=== PATIENT | male | born 1955 | race Caucasian/White ===

== ENCOUNTER 2017-10-01 09:39 | Inpatient (IN) | payer MEDICARE ==
[2017-10-01] VITALS (7 sets, daily range): BP systolic 116–189; BP diastolic 56–106
[~2017-10-01] VITALS: Ht 180.3 cm; Wt 157.9 kg
--- NOTE | ~2017-10-01 | PROC ---
[facility] [address] [place] [address] PROCEDURE REPORT Name: CURTIS DWYER Room: [address] IN M.R.#: [id number] Admission: 10/01/17 Attend Phys: Varun Skelton, Discharge: 10/08/17 Date of : 53 Report #: [id number] THIS REPORT FOR: //name// For GI report, Please see the Provation report in Perceptive 7 content. By: [facility]8Medical Records Staff ILENE /BRENNEN
[~2017-10-01 09:39] MED LIST: ACCUNEB0.63 MG/3 IH; ACETAMINOPHEN325 M1 PO; ALBUTEROL INH; ALBUTEROL SULFAT2 MG PO; ALBUTEROL2.5 MG/32; ALLERGY RELIEF1 EACH PO; ALPRAZOLAM 0.0.25 M1 PO; AMBEREN PO; AMLODIPINE BESY10 MG PO; AUGMENTIN 875875 M1 PO; AVELOX 400 MG400 M1 PO; AZITHROMYCIN 2250 MG PO; BENADRYL ALLE12.5 M1 PO; BENADRYL25 MG; CALCIUM ASCORB500 MG PO; CARTIA XT PO; CEFTIN500 MG PO; CLEOCIN HCL300 MG PO; CLONIDINE HCL0.3 M2 PO; CLONIDINE HCL0.3 M3 PO; COLACE 100 MG100 MG PO; COUMADIN 1MG TAB1 M1 PO; COUMADIN 5 MG TA5 M1 PO; DOXYCYCLINE 10100 MG PO; DUONEB 2.5-0.5 M3 ML INH; FIORICET 50-301 EACH PO; FLOMAX0.4 MG PO; GABAPENTIN100 MG PO; GLUCOPHAGE500 MG PO; GLUCOTROL10 MG PO; GLUCOTROL5 MG PO; HYDROCHLOROTHIA25 M1 PO; IBUPROFEN 600600 M1 PO; IBUPROFEN 800800 M1 GT; IBUPROFEN 800800 M1 PO; K-DUR 20 MEQ T20 MEQ PO; LASIX 20 MG TAB20 MG; LASIX 20 MG TAB20 MG PO; LASIX 40 MG TAB40 M2 PO; LEVAQUIN 500 M500 M2 PO; LISINOPRIL20 MG PO; LISINOPRIL40 MG PO; LOPRESSOR100 MG PO; LOPRESSOR50 PO; METFORMIN HCL500 MG PO; MUCINEX; MUCINEX TA600 MG/TA2 PO; MUCINEX600 MG; MUCINEX600 MG PO; MULTIPLE VITAM1 EAC3 PO; NORCO 5-325 TA1 EACH PO; NORVASC 5 MG TAB5 MG PO; NORVASC10 MG PO; NOVOLOG100 UNIT/1 SQ; OXYBUTYNIN 5 MG5 M2 PO; OXYCODONE HCL 55 MG PO; OXYCODONE HCL5 M1; OXYCODONE HCL5 M1 PO; OXYCONTIN20 M1 PO; OXYCONTIN40 MG; OXYCONTIN40 MG PO; PEPCID40 MG PO; PHENTERMINE H37.5 MG PO; PNEUMOVAX25 MCG/0.5; POTASSIUM20; POTASSIUM20 PO; PRAVACHOL20 MG PO; PREDNISONE 10 M10 MG PO; SERTRALINE HCL100 MG PO; SKELAXIN 800 M800 M1 PO; STOOL SOFTENER; STOOL SOFTENER1 EAC1 PO; STOOL SOFTENER240 MG PO; TAMSULOSIN HCL0.4 MG PO; TOPAMAX50 MG PO; TRIAMTERENE-HC1 EAC1 PO; VITAMIN B-6 PO; VITAMIN B-6200 M1 PO; VITAMIN C; VITAMIN C120 GM PO; VITAMIN D-32000 UNIT PO; VITAMINC500 PO; XANAX 0.25 MG0.25 MG PO; XANAX1 MG PO; ZOLOFT100 MG PO; ZOLOFT50 MG PO; [UNRECOGNIZED DRUG - OTHER]
[2017-10-01] MEDS ORDERED: PRILOSEC 20 MG20 MG PO (09:53)
[2017-10-01] MEDS ORDERED: VITAMINC500 PO (09:54)
[2017-10-01] MEDS ORDERED: ASPIRIN81 M2 PO (09:54)
[2017-10-01] MEDS ORDERED: PRED FORTE 1% EY5 M1 OPHTHALMIC (09:54)
[2017-10-01] MEDS ORDERED: STOOL SOFTENER1 EAC2 PO (09:55)
[2017-10-01] MEDS ORDERED: VITAMIN D1000 UNI1 PO (09:55)
[2017-10-01] MEDS ORDERED: VITAMIN B-12500 MCG PO (09:55)
[2017-10-01] MEDS ORDERED: ZANTAC 150MG T150 MG PO (09:56)
[2017-10-01 10:25] LABS: INFLUENZA A ANTIGEN None Detected (None Detect); INFLUENZA B ANTIGEN None Detected (None Detect)
[2017-10-01 10:26] LABS: HEMATOCRIT 22.4 % (42.0-52.0); MCH 14.9 pg (26.0-34.0); MCHC 26.3 g/dL (28.0-37.0); MCV 56.8 fL (80.0-100.0); MPV 8.6 fl. (7.2-11.1); NUCLEATED RBCS 0 /100WBC; PLATELET COUNT* 274 thou/uL (150-400); RBC 3.94 mil/uL (4.50-6.00); RDW-CV 21.4 % (10.5-14.5); WBC 13.8 thou/uL (4.0-11.0)
[2017-10-01 10:29] LABS: HEMOGLOBIN 5.9 gm/dL (14.0-18.0)
[2017-10-01 10:30] LABS: ANION GAP 3 mmol/L (7-16); BUN 15 mg/dL (7-18); CALCIUM 7.9 mg/dL (8.5-10.1); CHLORIDE 104 mmol/L (98-107); CO2 32 mmol/L (21-32); CREATININE 0.8 mg/dL (0.6-1.3); GLUCOSE 207 mg/dL (70-99); POTASSIUM 3.9 mmol/L (3.5-5.1); SODIUM 139 mmol/L (136-145)
[2017-10-01 10:31] LABS: APTT 38.7 Seconds (25.0-31.3); INR 3.2; PROTIME 30.2 Seconds (9.20-11.50)
[2017-10-01 10:41] LABS: ALBUMIN 3.1 g/dL (3.4-5.0); ALKALINE PHOSPHATASE 77 U/L (46-116); NT-PRO BRAIN NAT PEPTIDE 696 pg/mL (<300); SGOT 13 U/L (15-37); SGPT 11 U/L (30-65); TOTAL BILIRUBIN 0.4 mg/dL (<0.1-1.0); TOTAL PROTEIN 7.3 g/dL (6.4-8.2); TROPONIN-I LEVEL <0.06 ng/mL (<0.06)
[2017-10-01 11:12] LABS: ABSOLUTE BASOPHILS 0.1 thou/uL (0.0-0.2); ABSOLUTE EOSINOPHILS 0.1 thou/uL (0.0-0.7); ABSOLUTE LYMPHOCYTES 0.4 thou/uL (0.8-5.3); ABSOLUTE MONOCYTES 0.4 thou/uL (0.0-1.2); ABSOLUTE NEUTROPHILS 12.7 thou/uL (1.6-8.1)
[2017-10-01 11:13] LABS: LARGE PLATELETS OCCASIONAL; PLATELET ESTIMATE ADEQUATE; TOXIC GRANULATION Occasional
[2017-10-01 11:14] LABS: ANISOCYTOSIS 2+; HYPOCHROMASIA 3+; OVALOCYTES 1+
[2017-10-01 11:15] LABS: MACROCYTES Occasional; MICROCYTES 2+; POLYCHROMASIA Occasional
[2017-10-01 11:43] LABS: URINE BILIRUBIN NEGATIVE (Negative); URINE BLOOD NEGATIVE (Negative); URINE CLARITY CLEAR; URINE COLOR YELLOW; URINE GLUCOSE-RANDOM NEGATIVE (Negative); URINE KETONES NEGATIVE (Negative); URINE LEUKOCYTES-REFLEX NEGATIVE (Negative); URINE NITRITE-REFLEX NEGATIVE (Negative); URINE PROTEIN NEGATIVE (Negative); URINE SPECIFIC GRAVITY 1.015 (1.005-1.030); URINE UROBILINOGEN 0.2 E.U./dl (0.2-1.0)
[2017-10-01] MEDS ORDERED: LOPRESSOR25 PO (17:40)
[2017-10-01] MEDS ORDERED: ALBUTEROL2.5 MG/31 INH (18:48)
[2017-10-01] MEDS ORDERED: GABAPENTIN 100100 MG PO (18:50)
[2017-10-01] MEDS ORDERED: MELATONIN10 M1 PO (18:51)
[2017-10-01] MEDS ORDERED: OXYCODONE HCL 55 MG PO (20:14)
[2017-10-01 22:50] LABS: HEMATOCRIT 24.5 % (42.0-52.0); MCH 17.8 pg (26.0-34.0); MCHC 28.7 g/dL (28.0-37.0); MPV 8.5 fl. (7.2-11.1); RBC 3.95 mil/uL (4.50-6.00); RDW-CV 27.1 % (10.5-14.5); WBC 11.6 thou/uL (4.0-11.0)
[2017-10-02 03:51] VITALS: BP 147/79
[2017-10-02 05:22] LABS: HEMOGLOBIN 8.1 gm/dL (14.0-18.0); MCH 17.9 pg (26.0-34.0); MCV 61.6 fL (80.0-100.0); MPV 8.8 fl. (7.2-11.1); RBC 4.55 mil/uL (4.50-6.00); RDW-CV 26.9 % (10.5-14.5); WBC 10.3 thou/uL (4.0-11.0)
[2017-10-02 05:29] LABS: INR 2.1; PROTIME 20.7 Seconds (9.20-11.50)
[2017-10-02 05:40] LABS: CALCIUM 8.4 mg/dL (8.5-10.1); CREATININE 0.8 mg/dL (0.6-1.3); POTASSIUM 3.9 mmol/L (3.5-5.1)
[2017-10-02 08:40] VITALS: BP 155/77
--- NOTE | 2017-10-02 10:18 | EKG ---
[place] [address] ELECTROCARDIOGRAM REPORT Name: CURTIS DWYER Room: [address] ADM IN M.R.#: [id number] Admission: 10/01/17 Attend Phys: Varun Skelton, Discharge: Date of : 53 Report #: [id number] THIS REPORT FOR: //name// [facility] ED Test Date: 2017-10-01 Test Time: 09:43:25 Pat Name: CURTIS DWYER Department: Room: [facility] Gender: M Pondman: Ja AVENDAÑO : 1955 Requested By: Blaise Sims Order Number: [id number] MD: Peter Dwyer Measurements Intervals [place] Rate: 95 P: MS: QRS: 57 QRSD: 108 T: 25 QT: 362 QTc: 455 Interpretive Statements Atrial fibrillation Compared to ECG 08/18/2014 11:57:37 no change Electronically Signed On 10-02-2017 10:18:22 SALVAGE CLERK by Peter Dwyer [email or web address] <ELECTRONICALLY SIGNED> By: Peter Dwyer MD, [facility] 10/02/17 1018 0943 2 Peter Dwyer MD, FACC /EPI
--- NOTE | 2017-10-02 10:22 | EKG ---
[place] [address] ELECTROCARDIOGRAM REPORT Name: CURTIS DWYER Room: [address] ADM IN M.R.#: [id number] Admission: 10/01/17 Attend Phys: Varun Skelton, Discharge: Date of : 53 Report #: [id number] THIS REPORT FOR: //name// [facility] Test Date: 2017-10-01 Test Time: 16:47:32 Pat Name: CURTIS DWYER Department: Room: [address] Gender: M Wood Veneer Taper: : 1955 Requested By: Varun Skelton Order Number: [id number] MD: Peter Dwyer Measurements Intervals [place] Rate: 86 P: [place]: QRS: 50 QRSD: 105 T: 13 QT: 386 QTc: 462 Interpretive Statements Atrial fibrillation Electronically Signed On 10-02-2017 10:22:08 ICE GUARD INSPECTOR by Peter Dwyer [email or web address] <ELECTRONICALLY SIGNED> By: Peter Dwyer MD, [facility] 10/02/17 1022 1647 1647 Peter Dwyer MD, FACC /EPI
[2017-10-02 12:04] VITALS: BP 167/98
[2017-10-02 17:15] VITALS: BP 142/72
[2017-10-02 20:00] VITALS: BP 155/76
[2017-10-03 00:15] VITALS: BP 151/70
[2017-10-03 04:21] VITALS: BP 121/70
[2017-10-03 05:05] LABS: HEMATOCRIT 26.7 % (42.0-52.0); HEMOGLOBIN 7.5 gm/dL (14.0-18.0); MCH 17.7 pg (26.0-34.0); MCHC 28.3 g/dL (28.0-37.0); MCV 62.6 fL (80.0-100.0); MPV 8.6 fl. (7.2-11.1); RBC 4.26 mil/uL (4.50-6.00); RDW-CV 27.2 % (10.5-14.5); WBC 10.2 thou/uL (4.0-11.0)
[2017-10-03 05:21] LABS: INR 1.5; PROTIME 14.2 Seconds (9.20-11.50)
[2017-10-03 05:48] LABS: ALBUMIN 2.8 g/dL (3.4-5.0); CALCIUM 8.3 mg/dL (8.5-10.1); CREATININE 0.9 mg/dL (0.6-1.3); POTASSIUM 4.2 mmol/L (3.5-5.1); TOTAL BILIRUBIN 0.3 mg/dL (<0.1-1.0); TOTAL PROTEIN 6.6 g/dL (6.4-8.2)
[2017-10-03 08:00] VITALS: BP 126/81
[2017-10-03 10:25] VITALS: BP 121/65
[2017-10-03 16:12] VITALS: BP 144/71
--- NOTE | 2017-10-03 16:58 | 2DMMODE ---
[place] [address] 2 D/M-MODE ECHOCARDIOGRAM Name: CURTIS DWYER Room: [address] IN [facility]#: [id number] Admission: 10/01/17 Attend Phys: Varun Peguero Discharge: Date of : 53 Date of Service: 10/03/17 1657 Report #: [id number] THIS REPORT FOR: //name// APPROVED REPORT Study performed: 10/03/2017 16:13:46 EXAM: Comprehensive 2D, Doppler, and color-flow Echocardiogram Patient Location: In-Patient Room #: [facility] Status: routine BSA: 2.66 HR: 85 bpm BP: 121/65 mmHg Rhythm: Atrial Fibrillation Other Information Study Quality: Good Indications Atrial Fibrillation Dyspnea 2D Dimensions LVEF(%): 54.32 (>50%) IVSd: 16.46 (7-11mm) LVOT Diam: 23.18 (18-24mm) LVDd: 52.65 mm PWd: 14.79 (7-11mm) Ascending Ao: 39.62 (22-36mm) LVDs: 37.72 (25-40mm) Aortic Root: 45.49 mm Witt's LVEF: 54.32 % Volumes Left Atrial Volume (Systole) LA ESV Index: 41.50 mL/m2 Aortic Valve AoV Peak Abdelrahman.: 1.20 m/s AO Peak Gr.: 5.80 mmHg LVOT Max P.18 mmHg AO Mean Gr.: 3.21 mmHg LVOT Mean P.90 mmHg LVOT Max V: 1.02 m/s AO V2 VTI: 20.49 cm LVOT Mean V: 0.62 m/s VERONA (VTI): 3.60 cm2 LVOT V1 VTI: 17.47 [place] [address] 2 D/M-MODE ECHOCARDIOGRAM Name: CURTIS DWYER Room: [address] IN .R.#: [id number] Admission: 10/01/17 Attend Phys: Varun Peguero Discharge: Date of : 53 Date of Service: 10/03/17 1657 Report #: [id number] MV Decel. Time: 164.63 ms MV PHT: 47.74 ms MVA (PHT): 4.61 cm2 TDI Medial E' Abdelrahman.: 0.13 m/s Lateral E' Abdelrahman.: 0.14 m/s Pulmonary Valve PV Peak Abdelrahman.: 0.92 m/s PV Peak Gr.: 3.36 mmHg Tricuspid Valve TR Peak Gr.: 40.39 mmHg RVSP: 45.00 mmHg Left Ventricle The left ventricle is normal size. There is normal LV segmental wall motion. Moderate concentric left ventricular hypertrophy. Left ventricular systolic function is normal. The left ventricular ejection fraction is within the normal range. LVEF is 55-60%. This study is not technically sufficient to allow evaluation of the LV diastolic function due to atrial fibrillation. Right Ventricle The right ventricle is normal size. The right ventricular systolic function is normal. Atria Left atrium is moderately dilated. The right atrium size is normal. Aortic Valve The aortic valve is normal in structure. Trace aortic regurgitation. There is no aortic valvular stenosis. Mitral Valve The mitral valve is normal in structure. Mild mitral regurgitation. No evidence of mitral valve stenosis. Tricuspid Valve The tricuspid valve is normal in structure. Mild tricuspid regurgitation. The RVSP is 45-50 mmHg. Moderate pulmonary hypertension. Pulmonic Valve The pulmonary valve is normal in structure. [place] [address] 2 D/M-MODE ECHOCARDIOGRAM Name: CURTIS DWYER Room: [address] IN [facility]#: [id number] Admission: 10/01/17 Attend Phys: Varun Peguero Discharge: Date of : 53 Date of Service: 10/03/17 1657 Report #: [id number] Great Vessels The aortic root is normal in size. IVC is normal in size and collapses with >50% inspiration Pericardium There is no pericardial effusion. <Conclusion> Moderate concentric left ventricular hypertrophy. LVEF is 55-60%. This study is not technically sufficient to allow evaluation of the LV diastolic function due to atrial fibrillation. The right ventricle is normal size. The right ventricular systolic function is normal. Left atrium is moderately dilated. Trace aortic regurgitation. Mild mitral regurgitation. Mild tricuspid regurgitation. The RVSP is 45-50 mmHg. Mild pulmonic regurgitation. . Moderate pulmonary hypertension. <ELECTRONICALLY SIGNED> By: Armin Walton MD, [facility] 10/03/171656 56 56 Armin Walton MD, FACC /INF
[2017-10-03 20:48] VITALS: BP 160/89
[2017-10-04] VITALS: BP 144/59
[2017-10-04 05:23] LABS: INR 1.2; PROTIME 12.1 Seconds (9.20-11.50)
[2017-10-04 05:57] LABS: HEMATOCRIT 25.2 % (42.0-52.0); HEMOGLOBIN 7.1 gm/dL (14.0-18.0); MCH 17.8 pg (26.0-34.0); MCHC 28.3 g/dL (28.0-37.0); MCV 62.8 fL (80.0-100.0); MPV 8.9 fl. (7.2-11.1); NUCLEATED RBCS 0 /100WBC; PLATELET COUNT* 286 thou/uL (150-400); RBC 4.01 mil/uL (4.50-6.00); RDW-CV 28.1 % (10.5-14.5); WBC 10.6 thou/uL (4.0-11.0)
[2017-10-04 06:14] LABS: ALBUMIN 2.8 g/dL (3.4-5.0); CALCIUM 8.3 mg/dL (8.5-10.1); CREATININE 0.9 mg/dL (0.6-1.3); MAGNESIUM 1.8 mg/dL (1.8-2.4); POTASSIUM 4.4 mmol/L (3.5-5.1); TOTAL BILIRUBIN 0.3 mg/dL (<0.1-1.0); TOTAL PROTEIN 6.9 g/dL (6.4-8.2)
[2017-10-04 06:29] LABS: ABSOLUTE LYMPHOCYTES 0.3 thou/uL (0.8-5.3); ABSOLUTE MONOCYTES 0.1 thou/uL (0.0-1.2); ABSOLUTE NEUTROPHILS 10.2 thou/uL (1.6-8.1); ANISOCYTOSIS 2+; HYPOCHROMASIA 3+
[2017-10-04 06:30] LABS: MICROCYTES 2+; OVALOCYTES 2+; POLYCHROMASIA 2+
[2017-10-04 11:32] VITALS: BP 145/64
[2017-10-04 15:28] VITALS: BP 131/65
[2017-10-04 16:34] VITALS: BP 146/77; BP 151/82; BP 152/75; BP 154/82
[2017-10-04 20:10] VITALS: BP 149/75
[2017-10-05] VITALS (7 sets, daily range): BP systolic 119–149; BP diastolic 54–77
[2017-10-05 05:15] LABS: HEMATOCRIT 28.6 % (42.0-52.0); HEMOGLOBIN 8.2 gm/dL (14.0-18.0); MCH 18.7 pg (26.0-34.0); MCHC 28.7 g/dL (28.0-37.0); MCV 64.9 fL (80.0-100.0); MPV 8.8 fl. (7.2-11.1); RBC 4.41 mil/uL (4.50-6.00); RDW-CV 30.9 % (10.5-14.5); WBC 14.9 thou/uL (4.0-11.0)
[2017-10-05 05:33] LABS: ALBUMIN 2.8 g/dL (3.4-5.0); CALCIUM 8.3 mg/dL (8.5-10.1); CREATININE 0.9 mg/dL (0.6-1.3); MAGNESIUM 1.8 mg/dL (1.8-2.4); POTASSIUM 3.7 mmol/L (3.5-5.1); TOTAL BILIRUBIN 0.7 mg/dL (<0.1-1.0); TOTAL PROTEIN 6.4 g/dL (6.4-8.2)
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
[2017-10-06] VITALS: BP 126/53
[2017-10-06 04:00] VITALS: BP 120/45
[2017-10-06 05:05] LABS: HEMATOCRIT 29.2 % (42.0-52.0); HEMOGLOBIN 8.4 gm/dL (14.0-18.0); MCH 18.8 pg (26.0-34.0); MCHC 28.8 g/dL (28.0-37.0); MCV 65.2 fL (80.0-100.0); MPV 8.5 fl. (7.2-11.1); RBC 4.48 mil/uL (4.50-6.00); WBC 9.4 thou/uL (4.0-11.0)
[2017-10-06 05:15] LABS: CALCIUM 8.3 mg/dL (8.5-10.1); CREATININE 0.9 mg/dL (0.6-1.3); MAGNESIUM 1.8 mg/dL (1.8-2.4); POTASSIUM 3.8 mmol/L (3.5-5.1)
[2017-10-06 08:43] VITALS: BP 128/67
[2017-10-06 11:03] VITALS: BP 119/54
[2017-10-07 00:05] VITALS: BP 130/63
[2017-10-07 04:00] VITALS: BP 124/60
[2017-10-07 05:19] LABS: HEMATOCRIT 25.5 % (42.0-52.0); HEMOGLOBIN 7.4 gm/dL (14.0-18.0); MCH 18.9 pg (26.0-34.0); MCHC 28.8 g/dL (28.0-37.0); MCV 65.5 fL (80.0-100.0); MPV 8.9 fl. (7.2-11.1); RBC 3.9 mil/uL (4.50-6.00); RDW-CV 30.3 % (10.5-14.5)
[2017-10-07 05:23] LABS: CREATININE 0.8 mg/dL (0.6-1.3); POTASSIUM 3.5 mmol/L (3.5-5.1)
[2017-10-07 08:46] VITALS: BP 164/91
[2017-10-07 12:06] VITALS: BP 165/80
[2017-10-07 17:19] VITALS: BP 139/91; BP 145/77; BP 146/85; BP 158/92
[2017-10-08 00:06] VITALS: BP 166/85
[2017-10-08 06:13] LABS: HEMATOCRIT 29.2 % (42.0-52.0); HEMOGLOBIN 8.5 gm/dL (14.0-18.0); MCH 19.5 pg (26.0-34.0); MCHC 29.2 g/dL (28.0-37.0); MPV 8.9 fl. (7.2-11.1); RBC 4.36 mil/uL (4.50-6.00); RDW-CV 31.2 % (10.5-14.5); WBC 7.4 thou/uL (4.0-11.0)
[2017-10-08 06:39] LABS: CALCIUM 8.3 mg/dL (8.5-10.1); CREATININE 0.7 mg/dL (0.6-1.3)
[2017-10-08 12:00] VITALS: BP 121/66
[2017-10-08] MEDS ORDERED: DOXYCYCLINE 10100 MG PO (13:48)
[2017-10-08] MEDS ORDERED: IRON325 PO (13:48)
[2017-10-08 14:52] VITALS: BP 121/66
[2017-10-08 15:05] VITALS: BP 121/66
--- NOTE | 2017-10-10 12:03 | S ---
[place] [address] SURGICAL PATH RPT PROCEDURE Name: CURTIS DWYER Room: [address] IN M.R.#: [id number] Admission: 10/01/17 Date of : 53 Discharge: 10/08/17 Report #: [id number] Path Case #: [id number] PATHOLOGY REPORT COLLECTION DATE: 10/06/2017 RECEIVED DATE: 10/06/2017 SUBMITTING PHYS: Dr. Cosme Alatorre OTHER PHYS: Dr. Varun Martin SPECIMEN(S) RECEIVED: A.Duodenum B.Ascending polyp C.Transverse polyp D.Descending colon E.Descending polyp * * * * * * * * * * * * FINAL DIAGNOSIS: A. Duodenum "duodenum, biopsy": - Chronic duodenitis with blunting of villous pattern. - Blunting of villous pattern can be seen in patients with sprue and gluten sensitivity enteropathy. - Suggest clinical and laboratory studies. - There is no evidence of atypia or malignancy. B. Colonic mucosa "ascending polyp biopsy": - Tubular adenoma. - There is no evidence of high-grade dysplasia or malignancy. C. Colonic mucosa "transverse polyp biopsy": - Tubular adenoma. - There is no evidence of high-grade dysplasia or malignancy. D. Colonic mucosa "descending colon biopsy": - High-grade dysplasia suspicious for micro invasion (see comment). E. Colonic mucosa "descending polyp biopsy": - Tubular adenoma. - There is no evidence of high-grade dysplasia or malignancy (see comment). COMMENT: This case was also reviewed by Dr. Anjelica Rodriguez. Nurse Millie Huff at Dr. Cosme Alatorre's office was notified on 10/10/2017. (SHA:pit; 10/09/2017) PATHOLOGIST: Cayden Albarran M.D. REPORT ELECTRONICALLY SIGNED BY: Cayden Albarran M.D. DATE/TIME: 10/10/2017 12:02 * * * * * * * * * * * * [place] [address] SURGICAL PATH RPT PROCEDURE Name: CURTIS DWYER Room: [address] IN [facility].#: [id number] Admission: 10/01/17 Date of : 53 Discharge: 10/08/17 Report #: [id number] Path Case #: [id number] GROSS PATHOLOGY: A. Received in formalin labeled "Curtis Dwyer, duodenal biopsy," and additionally labeled on the requisition as "scalloping of duodenum, rule out celiac sprue," are 2 segments of buck soft tissue measuring 0.8 x 0.4 x 0.3 cm in aggregate dimensions and measuring 0.4 cm each in maximum dimension. The specimen is submitted entirely in cassette A1. B. Received in formalin labeled "Curtis Dwyer, ascending colon polyp," is a segment of buck soft tissue measuring 0.5 cm in maximum dimension. The specimen is submitted entirely in cassette B1. C. Received in formalin labeled "Curtis Dwyer, transverse colon polyp," is a segment of buck soft tissue measuring 0.5 cm in maximum dimension. The specimen is submitted entirely in cassette C1. D. Received in formalin labeled "Curtis Dwyer, descending colon biopsy," are 3 segments of buck soft tissue measuring 1.1 x 0.6 x 0.3 cm in aggregate dimensions and ranging from 0.4 to 0.5 cm in maximum dimension. The specimen is submitted entirely in cassette D1. E. Received in formalin labeled "Curtis Dwyer, descending colon polyp," are 2 segments of buck soft tissue measuring 0.6 x 0.2 x 0.2 cm in aggregate dimensions and measuring 0.3 cm in maximum dimension. The specimen is submitted entirely in cassette E1. (TSD; 10/06/2017) CLINICAL HISTORY: None provided INITIAL CPT CODE(S): A; 74233 B; 09965 C; 02718 D; 48700 E; 21072 Professional services performed by [facility] [place] [address] Technical services performed by [facility] at [address] [place] [address], [address], [place] [address]. [facility] [place] [address] PHONE: [phone] DIRECTOR: Sam Enamorado M.D. * * * END OF REPORT * * *
== END 2017-10-08 18:20 | disposition home or self-care (01) | DRG 377 ==
LOC: M.ERS 09:39 → M.2W 11:50 → M.TBA-ER 11:50 → M.2W 15:23
PROVIDERS: Emergency Medicine Emergency Medical Services; Internal Medicine; Internal Medicine Critical Care Medicine; ADMIT Family Medicine
DX: K92.2 Gastrointestinal hemorrhage, unspecified (principal); J18.9 Pneumonia, unspecified organism; F11.20 Opioid dependence, uncomplicated; D68.59 Other primary thrombophilia; Z68.42 Body mass index [BMI] 45.0-49.9, adult; D64.9 Anemia, unspecified; I10 Essential (primary) hypertension; K21.9 Gastro-esophageal reflux disease without esophagitis; G89.29 Other chronic pain; E66.01 Morbid (severe) obesity due to excess calories; G47.33 Obstructive sleep apnea (adult) (pediatric); I48.0 Paroxysmal atrial fibrillation; K59.09 Other constipation; K44.9 Diaphragmatic hernia without obstruction or gangrene; E11.9 Type 2 diabetes mellitus without complications; K63.5 Polyp of colon; Z90.49 Acquired absence of other specified parts of digestive tract; Z86.718 Personal history of other venous thrombosis and embolism; Z88.8 Allergy status to other drugs, medicaments and biological substances; Z93.0 Tracheostomy status; Z79.01 Long term (current) use of anticoagulants; Z80.3 Family history of malignant neoplasm of breast; Z83.49 Family history of other endocrine, nutritional and metabolic diseases; Z79.82 Long term (current) use of aspirin; Z79.899 Other long term (current) drug therapy

== ENCOUNTER → 2017-10-19 | Outpatient (CLI) | payer MEDICARE ==
[~2017-10-19] MED LIST changes: +ALBUTEROL2.5 MG/31 INH; +ASPIRIN81 M2 PO; +GABAPENTIN 100100 MG PO; +IRON325 PO; +LOPRESSOR25 PO; +MELATONIN10 M1 PO; +PRED FORTE 1% EY5 M1 OPHTHALMIC; +PRILOSEC 20 MG20 MG PO; +STOOL SOFTENER1 EAC2 PO; +VITAMIN B-12500 MCG PO; +VITAMIN D1000 UNI1 PO; +ZANTAC 150MG T150 MG PO
== END ==
LOC: M.CT 08:00
DX: K42.9 Umbilical hernia without obstruction or gangrene (principal); D50.9 Iron deficiency anemia, unspecified; Z90.49 Acquired absence of other specified parts of digestive tract